=== PATIENT | female | born 1965 | race Caucasian/White ===

== ENCOUNTER 2016-10-10 17:39 | Emergency (ER) | payer MEDICAID ==
[2012-06-08 08:36] VITALS: BMI 34.9
[2016-10-10 18:21] LABS: BASOPHILS 0.2 % (0-2); EOSINOPHILS 1.1 % (0-7); HEMATOCRIT 42.5 % (36.0-48.0); HEMOGLOBIN 14.2 g/dL (12-16); IMMATURE GRANULOCYTES 0.2 % (0-5); LYMPHOCYTES 28.4 % (15-50); MCH 30.9 pg (26.0-34.0); MCHC 33.4 g/dL (31.0-37.0); MCV 92.4 fL (80.0-100.0); MONOCYTES 8.6 % (2-11); NEUTROPHILS 61.5 % (40-80); PLATELET COUNT 213 10x3/uL (130-400); RDW 13.6 % (11.5-14.5); WBC 6.3 10x3/uL (4.8-10.8)
[2016-10-10 18:34] LABS: ALBUMIN 3.4 g/dL (3.4-5.0); ALKALINE PHOSPHATASE 81 U/L (46-116); ALT (SGPT) 28 U/L (10-68); BILIRUBIN - TOTAL 0.33 mg/dL (0.2-1.3); CALC OSMOLALITY 262 mosm/kg (275-300); CALCIUM 8.8 mg/dL (8.5-10.1); CARBON DIOXIDE 27.2 mmol/L (21.0-32.0); CHLORIDE - SERUM 100 mmol/L (98-107); CREATININE - SERUM 0.8 mg/dL (0.6-1.3); GLUCOSE 90 mg/dL (74-106); POTASSIUM - SERUM 3.6 mmol/L (3.5-5.1); PROTEIN - SERUM 6.6 g/dL (6.4-8.2); SODIUM 130 mmol/L (136-145); UREA NITROGEN 17 mg/dL (7-18); eGFR NON AFRICAN AMERICAN 81 mL/min (90-120)
[2016-10-10 18:50] LABS: APPEARANCE HAZY (CLEAR); BILIRUBIN NEGATIVE (NEGATIVE); COLOR YELLOW (YELLOW); GLUCOSE NEGATIVE (NEGATIVE); KETONE NEGATIVE (NEGATIVE); LEUKOCYTE ESTERASE NEGATIVE (NEGATIVE); NITRITE NEGATIVE (NEGATIVE); PROTEIN NEGATIVE (NEGATIVE); SPECIFIC GRAVITY 1.015 (1.005-1.020); UROBILINOGEN NORMAL (NORMAL)
[2016-10-10 20:22] LABS: CREATINE KINASE 66 UL (21-215)
[2016-10-10 20:25] LABS: TROPONIN-I < 0.017 ng/mL (0.000-0.060)
== END 2016-10-10 21:06 | disposition home or self-care (01) ==
LOC: D.ER 17:39
PROVIDERS: Emergency Medicine; Nurse Practitioner Family
DX: E86.0 Dehydration (principal); R55 Syncope and collapse; M54.5 Low back pain; K21.9 Gastro-esophageal reflux disease without esophagitis; F17.200 Nicotine dependence, unspecified, uncomplicated

== ENCOUNTER 2017-10-28 13:53 | Emergency (ER) | payer MEDICAID ==
[~2017-10-28] VITALS: Ht 175.3 cm; Wt 150.5 kg
[2017-10-28 14:10] VITALS: Ht 175.3 cm; Wt 150.5 kg
[2017-10-28] MEDS ORDERED: CELEXA40 MG PO (14:38)
[2017-10-28] MEDS ORDERED: OMEPRAZOLE40 MG PO (14:39)
[2017-10-28] MEDS ORDERED: LASIX20 MG PO (14:39)
[2017-10-28] MEDS ORDERED: HYDROCODONE-APA1 TAB PO (16:53)
[2017-10-28 17:25] VITALS: BP 126/78
[2017-11-07] MEDS ORDERED: CELEBREX50 MG PO (13:00)
== END 2017-10-28 17:36 | disposition home or self-care (01) ==
LOC: D.ER 13:53
DX: S62.307A Unspecified fracture of fifth metacarpal bone, left hand, initial encounter for closed fracture (principal); W19.XXXA Unspecified fall, initial encounter; Y93.89 Activity, other specified; Y92.89 Other specified places as the place of occurrence of the external cause; K21.9 Gastro-esophageal reflux disease without esophagitis

== ENCOUNTER 2017-11-08 07:55 | Day surgery (SDC) | payer MEDICAID ==
[2017-11-07 14:29] LABS: BASOPHILS 0.8 % (0-2); EOSINOPHILS 3.4 % (0-7); HEMATOCRIT 44.8 % (36.0-48.0); HEMOGLOBIN 14.8 g/dL (12-16); LYMPHOCYTES 34.3 % (15-50); MCH 29.4 pg (26.0-34.0); MCV 88.9 fL (80.0-100.0); MONOCYTES 5.7 % (2-11); NEUTROPHILS 55.8 % (40-80); PLATELET COUNT 224 10x3/uL (130-400); RBC 5.04 10x6/uL (4.00-5.40); RDW 13.6 % (11.5-14.5); WBC 6.1 10x3/uL (4.8-10.8)
[2017-11-07 14:55] LABS: CALC OSMOLALITY 282 mosm/kg (275-300); CALCIUM 8.9 mg/dL (8.5-10.1); CARBON DIOXIDE 30.3 mmol/L (21.0-32.0); CHLORIDE - SERUM 104 mmol/L (98-107); CREATININE - SERUM 0.7 mg/dL (0.6-1.3); GLUCOSE 88 mg/dL (74-106); SODIUM 142 mmol/L (136-145); UREA NITROGEN 16 mg/dL (7-18); eGFR NON AFRICAN AMERICAN > 90 mL/min (90-120)
[~2017-11-08] VITALS: Ht 175.3 cm; Wt 150.1 kg
[~2017-11-08 07:55] MED LIST: CELEBREX50 MG PO; CELEXA40 MG PO; HYDROCODONE-APA1 TAB PO; LASIX20 MG PO; OMEPRAZOLE40 MG PO
[2017-11-08 08:18] VITALS: Ht 175.3 cm; Wt 150.1 kg
[2017-11-08] MEDS ORDERED: KEFLEX500 MG PO (18:59)
== END 2017-11-08 18:45 | disposition home or self-care (01) ==
LOC: D.OPS 07:55 → D.PAN 10:00 → D.OPS 10:00
PROVIDERS: Orthopaedic Surgery
DX: S62.617A Displaced fracture of proximal phalanx of left little finger, initial encounter for closed fracture (principal); X58.XXXA Exposure to other specified factors, initial encounter; Z01.812 Encounter for preprocedural laboratory examination